=== PATIENT | male | born 1950 | race Caucasian/White ===

== ENCOUNTER → 2022-03-11 | Outpatient (CLI) | payer BLACK LUNG, MEDICARE, OTHER ==
[2022-03-11 11:10] LABS: HEMOGLOBIN 15.3 gm/dl (14.0-17.5); RED BLOOD COUNT 4.74 M/UL (4.20-5.50); WHITE BLOOD COUNT 8.4 K/UL (4.5-11.0)
[2022-03-11 11:23] LABS: BUN/CREATININE RATIO 16 (0-10)
== END ==
LOC: LAB 10:26
DX: L40.0 Psoriasis vulgaris (principal); Z79.899 Other long term (current) drug therapy
CPT/HCPCS: 80053; 85025